=== PATIENT | male | born 2000 | race Caucasian/White ===

== ENCOUNTER 2024-06-30 07:19 | Emergency (ER) | payer OTHER ==
[2024-06-30] MEDS ORDERED: HYDROCODONE/APAP 5/325 MG TAB ONE (07:45)
--- NOTE | 2024-06-30 07:46 | ER ---
Nurse's Notes [facility] Name: Iker Whalen Age: 23 yrs Sex: Male : 2000 Arrival Date: 06/30/2024 Time: 07:19 Bed 14 Private MD: Diagnosis: Dental abscess;Facial swelling Presentation: 06/30 07:30 Chief complaint: Patient states: has been dealing with a bad tooth on left lower jaw, iw his jaw swelled up last night. Ebola Screen: No symptoms or risks identified at this time. Initial Sepsis Screen: Does the patient meet any 2 criteria? No. Patient's initial sepsis screen is negative. Does the patient have a suspected source of infection? No. Patient's initial sepsis screen is negative. Risk Assessment: Do you want to hurt yourself or someone else? Patient reports no desire to harm self or others. 07:30 Method Of Arrival: Ambulatory iw 07:30 Acuity: YESI 4 iw 08:00 Coronavirus screen: At this time, the client does not indicate any symptoms associated ld1 with coronavirus-19. Onset of symptoms was June 30, 2024. Historical: - Allergies: 07:31 No Known Allergies; iw - Home Meds: 07:31 None [Active]; iw - PMHx: 07:31 None; iw - PSHx: 07:31 hernia; iw - Immunization history:: Adult Immunizations Adult Immunizations up to date. - Infectious Disease History:: Denies. - Social history:: Smoking status: Patient reports the use of cigarette tobacco products, denies chronic smoking, but will smoke occasionally. Screenin:58 [facility] ED Fall Risk Assessment (Adult) History of falling in the last 3 months, ld1 including since admission No falls in past 3 months (0 pts) Confusion or Disorientation No (0 pts) Intoxicated or Sedated No (0 pts) Impaired Gait No (0 pts) Mobility Assist Device Used No (0 pt) Altered Elimination No (0 pt) Score/Fall Risk Level 0 - 2 = Low Risk Oriented to surroundings, Hourly rounding (assess needs \T\ fall precautionary measures) done. Abuse screen: Denies threats or abuse. Denies injuries from another. Nutritional screening: No deficits noted. Tuberculosis screening: No symptoms or risk factors identified. Assessment: 07:58 General: Appears in no apparent distress. uncomfortable, Behavior is anxious. Pain: ld1 Complains of pain in lower left first bicuspid (#21) and lower left second bicuspid (#20) and lower left first molar (#19) Pain does not radiate. Pain currently is 10 out of 10 on a pain scale. Quality of pain is described as throbbing, Pain began suddenly, Is continuous. Neuro: Level of Consciousness is awake, alert, obeys commands, Oriented to person, place, time, situation. Cardiovascular: Capillary refill < 3 seconds Patient's skin is warm and dry. Respiratory: Airway is patent Respiratory effort is even, unlabored. GI: Abdomen is flat, non-distended. : No signs and/or symptoms were reported regarding the genitourinary system. EENT: Reports pain in mouth. Derm: No signs and/or symptoms reported regarding the dermatologic system. Musculoskeletal: No signs and/or symptoms reported regarding the musculoskeletal system. Vital Signs: 07:30 BP 139 / 89; Pulse 112; Resp 16; Pulse Ox 100% on R/A; Weight 72.57 kg; Height 6 ft. 3 iw in. ; Pain 9/10; 07:58 BP 131 / 88; Pulse 84; Resp 18; Pulse Ox 100% on R/A; Pain 10/10; ld1 07:30 Body Mass Index 20.00 (72.57 kg, 190.5 cm) iw 07:30 Pain Scale: Adult iw 07:58 Pain Scale: Adult ld1 ED Course: 07:24 Patient arrived in ED. gl 07:27 Woo Cummings DO is Attending Physician. ms3 07:31 Triage completed. iw 07:32 Arm band placed on. iw 07:34 Stephanie Cummings, KAYODE is Primary Nurse. ld1 07:46 Renan Day DDS is Referral Physician. ms3 07:58 Patient has correct armband on for positive identification. Call light in reach. Door ld1 closed. 07:58 No provider procedures requiring assistance completed. Patient did not have IV access ld1 during this emergency room visit. Administered Medications: 07:40 Drug: HYDROcodone-acetaminophen PO 5 mg-325 mg 1 tabs PO once Route: PO; ld1 07:57 Follow up: Response: No adverse reaction ld1 Medication: 07:58 VIS not applicable for this client. ld1 Outcome: 07:46 Discharge ordered by . ms3 07:58 Discharged to home ambulatory, ld1 07:58 Condition: unchanged 07:58 Discharge instructions given to patient, Instructed on discharge instructions, follow up and referral plans. medication usage, Demonstrated understanding of instructions, follow-up care, medications, Prescriptions given X 1, 08:00 Patient left the ED. ld1 Signatures: Hillary Short RN RN iw Woo Cummings DO DO ms3 Stephanie Cummings RN RN ld1 Shaye Lee, Reg Reg gl Corrections: (The following items were deleted from the chart) 07:32 07:31 PSHx: None; iw iw
--- NOTE | 2024-06-30 07:46 | EDPHYS ---
Physician Documentation [facility] Name: Iker Whalen Age: 23 yrs Sex: Male : 2000 Arrival Date: 06/30/2024 Time: 07:19 Bed 14 Private MD: ED Physician Woo Cummings HPI: 06/30 07:50 This 23 yrs old Male presents to ER via Ambulatory with complaints of Abscess, ms3 Toothache. 07:51 23-year-old male with no past medical history presents to the emergency department for ms3 a toothache that has been ongoing for 1 week and facial swelling that began last night. Patient states his pain is a 9/10. Patient denies fevers, chills, nausea. Patient states he has had intermittent vomiting. Historical: - Allergies: 07:31 No Known Allergies; iw - Home Meds: 07:31 None [Active]; iw - PMHx: 07:31 None; iw - PSHx: 07:31 hernia; iw - Immunization history:: Adult Immunizations Adult Immunizations up to date. - Infectious Disease History:: Denies. - Social history:: Smoking status: Patient reports the use of cigarette tobacco products, denies chronic smoking, but will smoke occasionally. ROS: 07:51 Constitutional: Negative for fever, and chills. Cardiovascular: Negative for chest ms3 pain, and palpitations. Respiratory: Negative for shortness of breath, cough, wheezing, and pleuritic chest pain, Abdomen/GI: Negative for abdominal pain, nausea, vomiting, diarrhea, and constipation, 07:51 MS/Extremity: Negative for injury and deformity, 07:51 ENT: Positive for Teeth pain Exam: 07:51 Constitutional: This is a well developed, well nourished patient who is awake, alert, ms3 and in no acute distress. Cardiovascular: Regular rate and rhythm with a normal S1 and S2. No gallops, murmurs, or rubs. Normal PMI, no JVD. No pulse deficits. Respiratory: Lungs have equal breath sounds bilaterally, clear to auscultation and percussion. No rales, rhonchi or wheezes noted. No increased work of breathing, no retractions or nasal flaring. Abdomen/GI: Soft, non-tender, with normal bowel sounds. No distension or tympany. No guarding or rebound. No evidence of tenderness throughout. Skin: Warm, dry with normal turgor. Normal color with no rashes, no lesions, and no evidence of cellulitis. 07:51 ENT: Dental exam: dental caries, that is moderate, gum swelling, that is moderate, specifically in the lower left first molar (#19), lower left second bicuspid (#20) and lower left first bicuspid (#21), No submental induration or swelling, Vital Signs: 07:30 BP 139 / 89; Pulse 112; Resp 16; Pulse Ox 100% on R/A; Weight 72.57 kg; Height 6 ft. 3 iw in. ; Pain 9/10; 07:58 BP 131 / 88; Pulse 84; Resp 18; Pulse Ox 100% on R/A; Pain 10/10; ld1 07:30 Body Mass Index 20.00 (72.57 kg, 190.5 cm) iw 07:30 Pain Scale: Adult iw 07:58 Pain Scale: Adult ld1 MDM: 07:44 Medical Screening Exam initiated ms3 07:51 Differential diagnosis: abscess, cellulitis. Data reviewed: vital signs, nurses notes, ms3 and as a result, I will discharge patient. I considered the following discharge prescriptions or medication management in the emergency department Medications were administered in the Emergency Department. See MAR. Counseling: I had a detailed discussion with the patient and/or guardian regarding the historical points, exam findings, and any diagnostic results supporting the discharge/admit diagnosis, the need for outpatient follow up, to return to the emergency department if symptoms worsen or persist or if there are any questions or concerns that arise at home. Special discussion: I discussed with the patient/guardian in detail that at this point there is no indication for admission to the hospital. It is understood, however, that if the symptoms persist or worsen the patient needs to return immediately for re-evaluation. ED course: Discussed physical exam findings and treatment plan with patient. Patient understands and agrees with plan. Patient to follow-up with Dr. Day in 2 to 3 days. All questions were answered. Return precautions discussed include submental swelling, tongue swelling, difficulty breathing, worsening symptoms, or any other concerns.. Administered Medications: 07:40 Drug: HYDROcodone-acetaminophen PO 5 mg-325 mg 1 tabs PO once Route: PO; ld1 07:57 Follow up: Response: No adverse reaction ld1 Disposition Summary: 06/30/24 07:46 Discharge Ordered Notes: Location: Home ms3 Condition: Stable ms3 Diagnosis - Dental abscess ms3 - Facial swelling ms3 Followup: ms3 - With: Renan Day DDS - When: 2 - 3 days - Reason: Recheck today's complaints Discharge Instructions: - Discharge Summary Sheet ms3 - Dental Abscess, [id number] ms3 Forms: - Work release form ph - Medication Reconciliation Form ms3 - Antibiotic Education ms3 - Prescription Opioid Use ms3 - Patient Portal Instructions ms3 - Leadership Thank You Letter ms3 Prescriptions: - Clindamycin HCl 300 mg Oral Capsule - take 1 capsule ORAL route every 6 hours for 10 days; 40 capsule; Refills: 0, ms3 Product Selection Permitted - Ibuprofen 600 mg Oral Tablet - take 1 tablet ORAL route every 6 hours As needed take with food; 30 tablet; ms3 Refills: 0, Product Selection Permitted Signatures: Hillary Short RN RN iw Woo Cummings DO DO ms3 Stephanie Cummings RN RN ld1 Corrections: (The following items were deleted from the chart) 07:32 07:31 PSHx: None; carlitos
[2024-07-01 02:27] VITALS: O2SAT 100
[2024-07-01 02:29] VITALS: BP 131/88
== END 2024-06-30 08:00 | disposition home or self-care (01) ==
LOC: ER 07:19
DX: K04.7 Periapical abscess without sinus (principal)